=== PATIENT | female | born 1965 | race Caucasian/White ===

== ENCOUNTER → 2020-10-11 | Outpatient (CLI) | payer BC ==
[~2020-10-11] MED LIST: BECL10.62 IH; ESTR-113 PO; MONT10TA49 PO; PROG100C10 PO; PROG200C10 PO; TRIA10.8 NS; estradol
--- NOTE | 2020-10-11 15:11 | CARD ---
MR#: [id number] Date of Study: 10/11/2020 Ordering Physician: MARINO WATT, Referring Physician: MARINO WATT, Tech: Marcela Randall [facility] APPROVED REPORT EXAM: Two-dimensional and M-mode echocardiogram with Doppler and color Doppler. Other Information Quality : AverageHR: 85bpm Rhythm : NSR INDICATION Dyspnea 2D DIMENSIONS RVDd2.3 (2.9-3.5cm)Left Atrium(2D)2.7 (1.6-4.0cm) IVSd0.7 (0.7-1.1cm)LVDd3.6 (3.9-5.9cm) LVOT Diameter1.8 (1.8-2.4cm)PWd0.8 (0.7-1.1cm) LVDs2.4 (2.5-4.0cm)FS (%) 31.8 % SV32.3 mlLVEF(%)60.9 (>50%) Aortic Valve AoV Peak Kyler.122.6cm/Robb Peak GR.6.0mmHg AI P 1/2 Doet088za Mitral Valve MV E Kuxdross80.7cm/sMV DECEL SVTO955yz MV A Dvuaynsp67.0cm/sE/A Ratio1.4 TDI Lateral E' P. V11.55cm/sMedial E' P. V11.75cm/s E/Lateral E'7.6E/Medial E'7.5 Tricuspid Valve TR P. Khfqarjd071jo/sTR Peak Gr.21mmHg LEFT VENTRICLE The left ventricle is normal size. There is normal left ventricular wall thickness. The left ventricu lar systolic function is normal. Estimated ejection fraction 60-65%. There is normal LV segmental wal l motion. The left ventricular diastolic function and filling is normal for age. RIGHT VENTRICLE The right ventricle is normal size. There is normal right ventricular wall thickness. The right ventr icular systolic function is normal. ATRIA The left atrium size is normal. The right atrium size is normal. The interatrial septum is intact wit h no evidence for an atrial septal defect or patent foramen ovale as noted on 2-D or Doppler imaging. AORTIC VALVE The aortic valve is normal in structure and function. Doppler and Color Flow revealed no significant aortic regurgitation. There is no significant aortic valvular stenosis. MITRAL VALVE The mitral valve is normal in structure and function. There is no evidence of mitral valve prolapse. There is no mitral valve stenosis. Doppler and Color-flow revealed mild mitral regurgitation. TRICUSPID VALVE The tricuspid valve is normal in structure and function. Doppler and Color Flow revealed trace tricus pid regurgitation. Estimated PAP 26 mmHg. There is no tricuspid valve stenosis. PULMONIC VALVE The pulmonary valve is normal in structure and function. Doppler and Color Flow revealed trace pulmon ic valvular regurgitation. GREAT VESSELS The aortic root is normal in size. The ascending aorta is normal in size. The IVC is normal in size a nd collapses >50% with inspiration. PERICARDIAL EFFUSION There is no evidence of significant pericardial effusion. Critical Notification Critical Value: No <Conclusion> The left ventricular systolic function is normal. Estimated ejection fraction 60-65%. There is normal LV segmental wall motion. Mild mitral regurgitation. Trace tricuspid regurgitation. Estimated PAP 26 mmHg. There is no evidence of significant pericardial effusion. Signed by : Richard Hernández, Electronically Approved : 10/11/2020 15:10:31
== END ==
LOC: ECHO 08:15
PROVIDERS: ATTEND Internal Medicine Cardiovascular Disease
DX: I34.0 Nonrheumatic mitral (valve) insufficiency (principal); R06.00 Dyspnea, unspecified
CPT/HCPCS: 93306

== ENCOUNTER 2020-11-17 02:30 | Observation (INO) | payer BC ==
[~2020-11-17] VITALS: Ht 162.6 cm; Wt 59.9 kg
--- NOTE | 2020-11-17 02:46 | PHYS DOC ---
General Adult HPI: HPI: Patient is a 55 year old female who is on no prescription medications presents for evaluation after an apparent syncopal episode. Patient states she got up out of bed to go to the bathroom and while on the toilet she suddenly felt nauseous.. Patient then had a syncopal episode. states he found patient passed out on the floor. He took her blood pressure and it was initially greater than 200 systolic. states patient was confused and diaphoretic. denied any slurred speech facial droop or noticeable focal weakness. Upon EMS arrival patient's mental status had improved. Prior to syncope patient denied any preceding palpitations chest pain or dizziness. Patient currently complains of a mild headache. Patient states her nausea has resolved she denies any chest pain or shortness of breath. Review of Systems: Review of Systems: Constitutional: Denies fever or chills. [] Eyes: Denies change in visual acuity. [] HENT: Denies nasal congestion or sore throat. [] Respiratory: Denies cough or shortness of breath. [] Cardiovascular: Denies chest pain or edema. [] GI: Denies abdominal pain, , vomiting, bloody stools or diarrhea. [Positive n ausea] : Denies dysuria. [] Musculoskeletal: Denies back pain or joint pain. [] Integument: Denies rash. [] Neurologic: , no focal weakness or sensory changes. [Positive syncope positive headache] Endocrine: Denies polyuria or polydipsia. [] Lymphatic: Denies swollen glands. [] Psychiatric: Denies depression or anxiety. [] Heart Score: Risk Factors: Risk Factors: DM, Current or recent (<one month) smoker, HTN, HLP, family history of CAD, obesity. Risk Scores: Score 0 - 3: 2.5% MACE over next 6 weeks - Discharge Home Score 4 - 6: 20.3% MACE over next 6 weeks - Admit for Clinical Observation Score 7 - 10: 72.7% MACE over next 6 weeks - Early Invasive Strategies Current Medications: Current Medications Medications (Trade) Dose Ordered Sig/Ramin Start Time Stop Time Status Last Admin Dose Admin Sodium Chloride 1,000 ml @ 1,000 mls/hr 1X ONCE 11/17/20 02:45 11/17/20 03:44 UNV Allergies: Allergies: Allergies Coded Allergies Type Severity Reaction Last Updated Verified prednisone Allergy Intermediate HIGH HEART RATE 11/17/20 Yes Physical Exam: PE: Constitutional: Well developed, well nourished, no acute distress, non-toxic appearance. [] HENT: Normocephalic, atraumatic, bilateral external ears normal, oropharynx moist, no oral exudates, nose normal. [] Eyes: PERRLA, EOMI, conjunctiva normal, no discharge. [] Neck: Normal range of motion, no tenderness, supple, no stridor. [] Cardiovascular:Heart rate regular rhythm, no murmur [] Lungs & Thorax: Bilateral breath sounds clear to auscultation [] Abdomen: Bowel sounds normal, soft, no tenderness, no masses, no pulsatile masses. [] Skin: Warm, dry, no erythema, no rash. [] Back: No tenderness, no CVA tenderness. [] Extremities: No tenderness, no cyanosis, no clubbing, ROM intact, no edema. [] Neurologic: Alert and oriented X 3, normal motor function, normal sensory function, no focal deficits noted. [] Psychologic: Affect normal, judgement normal, mood normal. [] EKG: EKG: EKG performed at 240 heart rate [address] elevation no ST depression no acute AL [] Radiology/Procedures: Radiology/Procedures: [] Impression: FINDINGS: No acute intracranial hemorrhage. No mass effect, midline shift or hydrocephalus. Gutierrez-white matter differentiation is maintained. Unremarkable calvarium. No layering fluid seen within the visualized paranasal sinuses. Unremarkable mastoid air cells and middle ears. IMPRESSION: No acute intracranial abnormality by CT. Electronically signed by: DANIEL CARMONA MD (11/17/2020 3:33 AM) [facility] Course & Med Decision Making: Course & Med Decision Making Pertinent Labs and Imaging studies reviewed. (See chart for details) [] Dragon Disclaimer: Dragon Disclaimer: This electronic medical record was generated, in whole or in part, using a voice recognition dictation system. Departure Departure Impression: Primary Impression: Syncope and collapse Additional Impression: Nausea Disposition: 09 ADMITTED INPT THIS HOSP Admitting Physician: JEFFY Condition: STABLE Referrals: MARIA DEL ROSARIO ZAVALA MD (PCP) MIKE DAVENPORT DO Nov 17, 2020 02:46
[2020-11-17] MEDS ORDERED: IV NORMAL SALINE 1000ML BAG 1,000 ML IV ONE (03:00)
[2020-11-17 03:14] LABS: BASO % 1 % (0-3); EOS # 0.1 x10^3/uL (0.0-0.7); EOS % 2 % (0-3); HEMATOCRIT 36.1 % (36.0-47.0); HEMOGLOBIN 12.4 g/dL (12.0-15.5); LYMPH % 17 % (24-48); MEAN CORPUSCULAR HEMOGLOBIN 32 pg (25-35); MEAN CORPUSCULAR HGB CONC 34 g/dL (31-37); MEAN CORPUSCULAR VOLUME 93 fL (79-100); MONO # 0.4 x10^3/uL (0.0-1.1); MONO % 6 % (0-9); NEUT # 4.3 x10^3/uL (1.8-7.7); NEUT % 74 % (31-73); PLATELET COUNT 168 x10^3/uL (140-400); RED CELL DISTRIBUTION WIDTH 12.7 % (11.5-14.5); WHITE BLOOD COUNT 5.8 x10^3/uL (4.0-11.0)
[2020-11-17 03:22] LABS: CALCIUM 8.4 mg/dL (8.5-10.1); CREATININE 0.9 mg/dL (0.6-1.0); GFR 65.2; POTASSIUM 3.6 mmol/L (3.5-5.1)
[2020-11-17 03:27] LABS: ALBUMIN 3.1 g/dL (3.4-5.0); TOTAL BILIRUBIN 0.3 mg/dL (0.2-1.0); TOTAL PROTEIN 6.1 g/dL (6.4-8.2)
--- NOTE | 2020-11-17 03:35 | RAD ---
STUDY: CT head without contrast INDICATION: Syncope. COMPARISON: None available. TECHNIQUE: Axial CT imaging through the head without the use of intravenous contrast. Sagittal and co greg reformats were obtained. One or more of the following individualized dose reduction techniques were utilized for this examinat ion: 1. Automated exposure control 2. Adjustment of the mA and/or kV according to patient size 3. Use of iterative reconstruction technique. FINDINGS: No acute intracranial hemorrhage. No mass effect, midline shift or hydrocephalus. Gutierrez-white matter d ifferentiation is maintained. Unremarkable calvarium. No layering fluid seen within the visualized paranasal sinuses. Unremarkable mastoid air cells and middle ears. IMPRESSION: No acute intracranial abnormality by CT. Electronically signed by: DANIEL CARMONA MD (11/17/2020 3:33 AM) [facility]
--- NOTE | 2020-11-17 04:03 | EKG ---
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
[2020-11-17] MEDS ORDERED: ONDANSETRON PF 4 MG/2 ML VIAL. IV PRN (04:15)
[2020-11-17 05:40] VITALS: BP 126/71
[2020-11-17] MEDS ORDERED: estradol (06:28)
[2020-11-17] MEDS ORDERED: PROG100C10 PO (06:28)
[2020-11-17] MEDS ORDERED: MONT10TA49 PO (06:28)
[2020-11-17] MEDS ORDERED: BECL10.62 IH (06:28)
--- NOTE | 2020-11-17 06:28 | NUR ---
Pt arrived to room 263 per cart, pt assisted to bed vs obtained and stable tele monitor applied. Assessment completed pt denied pain at this time call light placed in reach pt reminded to call for assistance prior to getting oob.
[2020-11-17] MEDS ORDERED: TRIA10.8 NS (07:51)
[2020-11-17] MEDS ORDERED: ESTR-113 PO (07:51)
[2020-11-17] MEDS ORDERED: PROG200C10 PO (07:51)
[2020-11-17 07:56] VITALS: BP 141/86
[2020-11-17 08:00] VITALS: BP_SYST 134; BP_SYST 136; BP_DIAS 83; BP_DIAS 88
--- NOTE | 2020-11-17 08:16 | PDOC1 ---
History and Physical Date of Service: DOS: DATE: 11/17/20 TIME: 07:48 Chief Complaint: Chief Complain: Syncope History of Present Illness: HPI: Patient is a 55-year-old female with past medical history of Covid in March 2020 and history of PACs who presents to the ED for syncopal episode. Patient states that she was sitting on the bathroom getting ready to urinate but she was not straining and suddenly she felt nauseous. She called out for her to help her but she passed out and on the floor she hit her head on the sink counter. 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 Repeat blood pressure was low of 74 systolic and repeat was 127 systolic all within 10 minutes. brought the patient to the ED mainly because the patient was diaphoretic and confused and we admitted her overnight just for observation and continue telemetry monitoring. Denies any focal neurological deficit, slurred speech, headaches or chest pain or abdominal pain. Patient states that she did get her Covid vaccine 2 days ago however she does not feel this is related to her presenting episode. Of note, many years ago patient has had a Holter monitor because of her dizziness but she does not remember if there is any further work-up and I have she believed that the results was negative. Allergies: Allergies: Coded Allergies: prednisone (Verified Allergy, Intermediate, HIGH HEART RATE, 11/17/20) Family History: Family History: Reviewed with no relevant findings Social History: Social History: Denies alcohol drug or tobacco abuse Current Medications: Current Medications Current Medications Sodium Chloride 1,000 ml @ 1,000 mls/hr 1X ONCE IV Last administered on 11/17/20at 02:57; Start 11/17/20 at 03:00; Stop 11/17/20 at 03:59; Status DC Ondansetron HCl (Zofran) 4 mg PRN Q8HRS PRN IV NAUSEA/VOMITING 1ST CHOICE; Start 11/17/20 at 04:15; Stop 11/18/20 at 04:14 Active Scripts Active Reported Qvar Redihaler (Beclomethasone Dipropionate) 10.6 Gm Hfa.aeroba 2 Puff IH BID 30 Days Montelukast Sodium Tablet (Montelukast Sodium) 10 Mg Tablet 10 Mg PO DAILY [estradol] Progesterone (Progesterone,Micronized) 100 Mg Capsule 1 Cap PO DAILY 30 Days ROS: Review of Systems Review of System REVIEW OF SYSTEMS: GENERAL: Denies weakness SKIN: No bruising, hair changes or rashes. EYES: No blurred, double or loss of vision. NOSE AND THROAT: No history of nosebleeds, hoarseness or sore throat. HEART: No history of palpitations, chest pain or shortness of breath on exertion. LUNGS: Denies cough, hemoptysis, wheezing or shortness of breath. GASTROINTESTINAL: Denies changes in appetite, nausea, vomiting, diarrhea or constipation. GENITOURINARY: No history of frequency, urgency, hesitancy or nocturia. NEUROLOGIC: Denies history of numbness, tingling, or tremor. PSYCHIATRIC: No history of panic, anxiety or depression. ENDOCRINE: No history of heat or cold intolerance, polyuria or polydipsia. EXTREMITIES: Denies joint pain, pain on walking or stiffness. Physical Exam: Vital Signs: Vital Signs Date Time Temp Pulse Resp B/P (MAP) Pulse Ox O2 Delivery O2 Flow Rate FiO2 11/17/20 05:40 99.0 81 19 126/71 (89) 95 Room Air 99.0 Physcial Exam: GEN: No apparent distress. Alert and oriented HEENT: Normal cephalic, atraumatic, external auditory canals are patent EYES: Extraocular muscles are intact, pupil are equally round and reactive to light and accommodation MUSCULOSKELETAL: Well developed , well nourished, good range of motion ENDOCRINE: No thyromegaly was palpated LYMPHATICS: No cervical chain or axillary nodes were noted HEMATOPOIETIC: No bruising NECK: Supple, no JVD, no thyromegaly was noted LUNGS: Clear to auscultation in all lung larson without rhonchi or wheezing HEART: RRR, S!, S2 present. Peripheral pulses intact, no obvious murmurs noted ABDOMEN: Soft, nontender. Positive bowel sounds, no organomegaly, normal bowel sounds EXTREMITIES: Without clubbing, cyanosis, or edema. Pedal pulses intact. Negative Homans sign NEUROLOGIC: Normal speech and tone. A&O x 3, moves all extremities, no obvious focal deficits PSYCHIATRIC: Normal affect, normal mood. Stable SKIN: No ulcerations or rashes, good skin turgor, no jaundice VASCULAR: Good capillary refill, neurovascular bundle appears to be intact Labs: Labs: Laboratory Tests Test 11/17/20 02:47 White Blood Count 5.8 x10^3/uL (4.0-11.0) Red Blood Count 3.90 x10^6/uL (3.50-5.40) Hemoglobin 12.4 g/dL (12.0-15.5) Hematocrit 36.1 % (36.0-47.0) Mean Corpuscular Volume 93 fL (79-100) Mean Corpuscular Hemoglobin 32 pg (25-35) Mean Corpuscular Hemoglobin Concent 34 g/dL (31-37) Red Cell Distribution Width 12.7 % (11.5-14.5) Platelet Count 168 x10^3/uL (140-400) Neutrophils (%) (Auto) 74 % (31-73) Lymphocytes (%) (Auto) 17 % (24-48) Monocytes (%) (Auto) 6 % (0-9) Eosinophils (%) (Auto) 2 % (0-3) Basophils (%) (Auto) 1 % (0-3) Neutrophils # (Auto) 4.3 x10^3/uL (1.8-7.7) Lymphocytes # (Auto) 1.0 x10^3/uL (1.0-4.8) Monocytes # (Auto) 0.4 x10^3/uL (0.0-1.1) Eosinophils # (Auto) 0.1 x10^3/uL (0.0-0.7) Basophils # (Auto) 0.0 x10^3/uL (0.0-0.2) Sodium Level 137 mmol/L (136-145) Potassium Level 3.6 mmol/L (3.5-5.1) Chloride Level 104 mmol/L (98-107) Carbon Dioxide Level 27 mmol/L (21-32) Anion Gap 6 (6-14) Blood Urea Nitrogen 9 mg/dL (7-20) Creatinine 0.9 mg/dL (0.6-1.0) Estimated GFR (Cockcroft-Gault) 65.2 BUN/Creatinine Ratio 10 (6-20) Glucose Level 115 mg/dL (70-99) Calcium Level 8.4 mg/dL (8.5-10.1) Total Bilirubin 0.3 mg/dL (0.2-1.0) Aspartate Amino Transf (AST/SGOT) 18 U/L (15-37) Alanine Aminotransferase (ALT/SGPT) 25 U/L (14-59) Alkaline Phosphatase 72 U/L (46-116) Troponin I Quantitative < 0.017 ng/mL (0.000-0.055) Total Protein 6.1 g/dL (6.4-8.2) Albumin 3.1 g/dL (3.4-5.0) Albumin/Globulin Ratio 1.0 (1.0-1.7) Laboratory Tests Test 11/17/20 02:47 White Blood Count 5.8 x10^3/uL (4.0-11.0) Red Blood Count 3.90 x10^6/uL (3.50-5.40) Hemoglobin 12.4 g/dL (12.0-15.5) Hematocrit 36.1 % (36.0-47.0) Mean Corpuscular Volume 93 fL (79-100) Mean Corpuscular Hemoglobin 32 pg (25-35) Mean Corpuscular Hemoglobin Concent 34 g/dL (31-37) Red Cell Distribution Width 12.7 % (11.5-14.5) Platelet Count 168 x10^3/uL (140-400) Neutrophils (%) (Auto) 74 % (31-73) Lymphocytes (%) (Auto) 17 % (24-48) Monocytes (%) (Auto) 6 % (0-9) Eosinophils (%) (Auto) 2 % (0-3) Basophils (%) (Auto) 1 % (0-3) Neutrophils # (Auto) 4.3 x10^3/uL (1.8-7.7) Lymphocytes # (Auto) 1.0 x10^3/uL (1.0-4.8) Monocytes # (Auto) 0.4 x10^3/uL (0.0-1.1) Eosinophils # (Auto) 0.1 x10^3/uL (0.0-0.7) Basophils # (Auto) 0.0 x10^3/uL (0.0-0.2) Sodium Level 137 mmol/L (136-145) Potassium Level 3.6 mmol/L (3.5-5.1) Chloride Level 104 mmol/L (98-107) Carbon Dioxide Level 27 mmol/L (21-32) Anion Gap 6 (6-14) Blood Urea Nitrogen 9 mg/dL (7-20) Creatinine 0.9 mg/dL (0.6-1.0) Estimated GFR (Cockcroft-Gault) 65.2 BUN/Creatinine Ratio 10 (6-20) Glucose Level 115 mg/dL (70-99) Calcium Level 8.4 mg/dL (8.5-10.1) Total Bilirubin 0.3 mg/dL (0.2-1.0) Aspartate Amino Transf (AST/SGOT) 18 U/L (15-37) Alanine Aminotransferase (ALT/SGPT) 25 U/L (14-59) Alkaline Phosphatase 72 U/L (46-116) Troponin I Quantitative < 0.017 ng/mL (0.000-0.055) Total Protein 6.1 g/dL (6.4-8.2) Albumin 3.1 g/dL (3.4-5.0) Albumin/Globulin Ratio 1.0 (1.0-1.7) Images: Images CT HEAD IMPRESSION: No acute intracranial abnormality by CT. Assessment/Plan Assessment/Plan Syncope due to vasovagal etiology versus cardiovascular etiology Prodromal symptoms include nausea hypotension and extremely high blood pressures Post syncope symptoms include hypotension and extremely high blood pressures and bradycardia Admit to medicine for further work-up Cardiology consult Pending echocardiogram Continue telemetry monitoring Fall precautions Orthostatic vital signs Hold all centrally acting medications Pending medication reconciliation Ambulation for DVT prophylaxis ADA diet Full code Discussed with RN and SW Disposition pending cardiology evaluation Surrogate decision maker is the Justifications for Admission Other Justification ATA MARTIN MD Nov 17, 2020 08:16
--- NOTE | 2020-11-17 10:00 | NUR ---
PT DECLINED THIRD TROPONIN. FIRST AND SECOND TROPONIN WERE WNL. PER HUANG, OK TO CANCEL TEST.
[2020-11-17 11:27] VITALS: BP 141/90
--- NOTE | 2020-11-17 11:28 | DISCH ---
DISCHARGE INSTRUCTIONS Condition on Discharge Condition on Discharge: Stable Activity After Discharge Activity Instructions for Disc: Activity as tolerated Lifting Instructions after Dis: Do not lift >10 pounds Driving Instructions after Dis: Do not drive today Diet after Discharge Diet after Discharge: Cardiac Checks after Discharge Checks after discharge: Check blood press - daily Contacting the DRMikey after DC Call your doctor for: If your condition worsens Follow-Up Follow up with: PCP within 2 weeks of discharge Follow Up With: Cardiology for your event monitor ATA MARTIN MD Nov 17, 2020 11:28
[2020-11-17] MEDS ORDERED: ACETAMINOPHEN 325 MG TABLET. PO PRN (11:30)
[2020-11-17] MEDS ORDERED: IV NORMAL SALINE 1000ML BAG 1,000 ML IV SCH (11:30)
[2020-11-17] MEDS ORDERED: ONDANSETRON PF 4 MG/2 ML VIAL. IVP PRN (11:30)
[2020-11-17] MEDS ORDERED: DOCUSATE SODIUM 100 MG CAPSULE. PO PRN (11:30)
[2020-11-17] MEDS ORDERED: SENNOSIDES 8.6 MG TABLET PO PRN (11:30)
[2020-11-17] MEDS ORDERED: DEXTROSE 50% 25 GM / 50ML DISP.SYRIN. IV PRN (11:30)
[2020-11-17] MEDS ORDERED: IOHEXOL 350 MG/ML 100 ML VIAL. IV ONE (13:00)
[2020-11-17] MEDS ORDERED: CONTRAST GIVEN. MC PRN (13:00)
--- NOTE | 2020-11-17 13:12 | PDOC2 ---
HUANG HOWELL ENVIRONMENTAL HEALTH SAFETY ENGINEER 11/17/20 1312: CARDIAC CONSULT DATE OF CONSULT Date of Consult DATE: 11/17/20 TIME: 12:53 REASON FOR CONSULT Reason for Consult: Syncope REFERRING PHYSICIAN Referring Physician: Lynette SOURCE Source: Chart review, Patient HISTORY OF PRESENT ILLNESS HISTORY OF PRESENT ILLNESS This is a pleasant 55 yo female admitted for complains of passing out. Reports that she had her 2nd Moderna vaccination last Saturday. Has been feeling off since then but no significnat dizziness. She did have a little nausea intermittently. No fever or chills. She did recover from Covid-19 in . Yesterday she was sitting on the toilet and then felt nauseated. She yelled out for her 3 times then she lost consciousness and fell to the floor. No injuries sutained at that time. Her came right after she fell and probably was unconscious for <1 min. She was sweaty but no chest pain or any i ssues with SOA. No vomiting at that time. Upon waking up he noted her acting confused but no unilateral neuro changes. No semblance of seizure episodes. No bowel or bladder incontinence. No vertigo and no palpitations. He checked her BP and SBP wsa in the 200s initially while on the floor then rechekced it abo0ut 5 min later and SBP was noted iin the 70s. Overnight she well. She was noted with some unsteady gait initially but no dizziness otherwise back to her normal self. No hx of CAD, VTE or arrhythmias although reports PACs noted in the past. No recent syncopal spell. No hx of DM. She does not take any BP meds. She does admit that since she had Covid-19 she gets SOA when going up the stairs. She does take estradiol for osteopenia. PAST MEDICAL HISTORY Cardiovascular: No pertinent hx Pulmonary: Asthma CENTRAL NERVOUS SYSTEM: Other (No pertinent history) GI: No pertinent hx Heme/Onc: No pertinent hx Psych: No pertinent hx Musculoskeletal: Osteoarthritis Rheumatologic: No pertinent hx Infectious disease: No pertinent hx ENT: No pertinent hx Renal/: No pertinent hx Endocrine: No pertinent hx, Osteopenia Dermatology: No pertinent hx PAST SURGICAL HISTORY Past Surgical History: No pertinent history FAMILY HISTORY Family History noncontributory to CV SOCIAL HISTORY Smoke: No ALCOHOL: none Drugs: None Lives: with Family CURRENT MEDICATIONS CURRENT MEDICATIONS Current Medications Medications (Trade) Dose Ordered Sig/Ramin Route PRN Reason Start Time Stop Time Status Last Admin Dose Admin Sodium Chloride 1,000 ml @ 1,000 mls/hr 1X ONCE IV 11/17/20 03:00 11/17/20 03:59 DC 11/17/20 02:57 ALLERGIES ALLERGIES: Coded Allergies: prednisone (Verified Allergy, Intermediate, HIGH HEART RATE, 11/17/20) ROS Review of System 14 point ROS evaluated with pertinent positives noted per HPI PHYSICAL EXAM General: Alert, Oriented X3, Cooperative, No acute distress HEENT: Atraumatic, Mucous membr. moist/pink Lungs: Clear to auscultation, Normal air movement Heart: Regular rate (SR), Normal S1, Normal S2, No murmurs Abdomen: Soft, No tenderness Extremities: No cyanosis, No edema Skin: No breakdown, No significant lesion Neuro: Normal speech, Sensation intact Psych/Mental Status: Mental status NL, Mood NL MUSCULOSKELETAL: Full range of motion without pain VITALS/I&O VITALS/I&O: Vital Signs Date Time Temp Pulse Resp B/P (MAP) Pulse Ox O2 Delivery O2 Flow Rate FiO2 11/17/20 11:27 99.0 81 18 141/90 (107) 98 Room Air 99.0 LABS Lab: Laboratory Tests Test 11/17/20 02:47 11/17/20 07:20 11/17/20 12:10 White Blood Count 5.8 x10^3/uL (4.0-11.0) Red Blood Count 3.90 x10^6/uL (3.50-5.40) Hemoglobin 12.4 g/dL (12.0-15.5) Hematocrit 36.1 % (36.0-47.0) Mean Corpuscular Volume 93 fL (79-100) Mean Corpuscular Hemoglobin 32 pg (25-35) Mean Corpuscular Hemoglobin Concent 34 g/dL (31-37) Red Cell Distribution Width 12.7 % (11.5-14.5) Platelet Count 168 x10^3/uL (140-400) Neutrophils (%) (Auto) 74 % (31-73) H Lymphocytes (%) (Auto) 17 % (24-48) L Monocytes (%) (Auto) 6 % (0-9) Eosinophils (%) (Auto) 2 % (0-3) Basophils (%) (Auto) 1 % (0-3) Neutrophils # (Auto) 4.3 x10^3/uL (1.8-7.7) Lymphocytes # (Auto) 1.0 x10^3/uL (1.0-4.8) Monocytes # (Auto) 0.4 x10^3/uL (0.0-1.1) Eosinophils # (Auto) 0.1 x10^3/uL (0.0-0.7) Basophils # (Auto) 0.0 x10^3/uL (0.0-0.2) Sodium Level 137 mmol/L (136-145) Potassium Level 3.6 mmol/L (3.5-5.1) Chloride Level 104 mmol/L (98-107) Carbon Dioxide Level 27 mmol/L (21-32) Anion Gap 6 (6-14) Blood Urea Nitrogen 9 mg/dL (7-20) Creatinine 0.9 mg/dL (0.6-1.0) Estimated GFR (Cockcroft-Gault) 65.2 BUN/Creatinine Ratio 10 (6-20) Glucose Level 115 mg/dL (70-99) H Calcium Level 8.4 mg/dL (8.5-10.1) L Total Bilirubin 0.3 mg/dL (0.2-1.0) Aspartate Amino Transferase (AST) 18 U/L (15-37) Alanine Aminotransferase (ALT) 25 U/L (14-59) Alkaline Phosphatase 72 U/L (46-116) Troponin I Quantitative < 0.017 ng/mL (0.000-0.055) < 0.017 ng/mL (0.000-0.055) Total Protein 6.1 g/dL (6.4-8.2) L Albumin 3.1 g/dL (3.4-5.0) L Albumin/Globulin Ratio 1.0 (1.0-1.7) Thyroid Stimulating Hormone (TSH) 2.091 uIU/mL (0.358-3.74) D-Dimer (Tatiana) 1.20 ug/mlFEU (0.00-0.50) H Laboratory Tests 11/17/20 02:47 Laboratory Tests 11/17/20 02:47 ASSESSMENT/PLAN ASSESSMENT/PLAN 1. Syncope: suspect vasovagal with also recent 2nd dose moderna vaccine on Saturday 2. Nontraumatic fall: due to above 3. Persistent MARES since covid-19 4. Recovered Covid-19 [id number] 5. HRT: on progesterone and estradiol Recommendations 1. Much better after IV hydration. No orthostasis. No arrhythmia. No further symptoms. Recent TTE reviewed with no significant changes. Will obtain DDIMER and if + then will obtain CTA chest and rule out PE 2. Will consider for MCOT 3. Follow up in office. MARINO WATT MD 11/17/20 1742: CARDIAC CONSULT ASSESSMENT/PLAN ASSESSMENT/PLAN Patient seen and examined. Agree with above nurse practitioner note. Supportive care. CT chest negative, TTE negative. EKG unremarkable Plan for outpatient event monitor but this appears to be mostly a vasovagal episode related to GI issues. HUANG HOWELL APRN Nov 17, 2020 13:12 MARINO WATT MD Nov 17, 2020 17:42
--- NOTE | 2020-11-17 14:27 | NUR ---
SS following for discharge planning. SS reviewed pt chart and discussed with pt RN. Pt is from home with spouse and is currently on room air. COVID19 recovered. Discharge order on the chart to home.
[2020-11-17 14:48] VITALS: BP 142/88
--- NOTE | 2020-11-17 15:35 | RAD ---
EXAM: CT Pulmonary Angiogram INDICATION: Reason: syncope, ELEVATED D-DIMER / Spl. Instructions: omni 350 90ml / History: TECHNIQUE: Multi-detector row images were acquired from the thoracic inlet through the upper abdomen with the use of IV contrast. Sagittal and coronal images were acquired from the transaxial data. CT P images of the pulmonary arteries were obtained. All CT scans performed at this facility utilize dos e optimization techniques as appropriate to the exam, including the following: Automated exposure con trol and adjustment of the mA and/or KV according to patient size (this includes techniques or standa rdized protocols for targeted exams where dose is indication/reason for exam). IV CONTRAST: Administered COMPARISON: PA and lateral chest of 12/19/2015 FINDINGS: PULMONARY ARTERIES: No pulmonary emboli are identified. CARDIOVASCULAR: Unremarkable Aorta is normal caliber. MEDIASTINUM & RICHARD: No adenopathy or masses. LUNGS: No pulmonary infiltrate, nodule, or other focal abnormality. PLEURAL SPACE: No pleural effusions or pneumothorax. OSSEOUS & SOFT TISSUE: Unremarkable ABDOMEN: The visualized portions of the upper abdomen are unremarkable. IMPRESSION: Normal CT pulmonary angiogram. Electronically signed by: Elyse Montenegro MD (11/17/2020 3:32 PM) [id number]
--- NOTE | 2020-11-17 16:25 | NUR ---
Discharge Note: CRISTIAN ALVARENGA Discharge instructions and discharge home medications reviewed with Patient and a copy given. All questions have been answered and understanding verbalized. The following instructions and handouts were given: SYNCOPE, BRADYCARDIA, DISCHARGE PAPERWORK Discontinued lines and drains: Peripheral IV intact. Patient discharged to Home or Self Care withSpousevia Wheelchair
== END 2020-11-17 16:28 | disposition home or self-care (01) ==
LOC: ER 02:30 → 2 SOUTH 04:59
PROVIDERS: ADMIT Internal Medicine; ATTEND Internal Medicine
DX: R55 Syncope and collapse (principal); I10 Essential (primary) hypertension; I95.9 Hypotension, unspecified; R11.0 Nausea; J45.909 Unspecified asthma, uncomplicated; M85.80 Other specified disorders of bone density and structure, unspecified site; M19.90 Unspecified osteoarthritis, unspecified site; Z86.16 Personal history of COVID-19; W18.30XA Fall on same level, unspecified, initial encounter; Y93.89 Activity, other specified; Y92.89 Other specified places as the place of occurrence of the external cause; Y99.8 Other external cause status
CPT/HCPCS: 36415; 70450; 71275; 80053; 84443; 84484; 85025; 85379; 93005; 96360; 96361; 99285; G0378; J7030; Q9967; G0379